=== PATIENT | female | born 1970 | race Caucasian/White ===

== ENCOUNTER 2020-05-02 19:11 | Inpatient (IN) | payer MEDICAID ==
[~2020-05-02] VITALS: Ht 160 cm; Wt 74.5 kg
[2020-05-03 05:03] VITALS: BP 118/83
[2020-05-03] MEDS ORDERED: MAGNESIUM HYDROXIDE SUSPENSION 30 ML UDCUP PO PRN (07:30)
[2020-05-03] MEDS ORDERED: BENZOCAINE/MENTHOL LOZENGE PO PRN (07:30)
[2020-05-03] MEDS ORDERED: MAG HYDROX/AL HYDROX/SIMETH ES 30 ML SUSPENSION UDCUP PO PRN (07:30)
[2020-05-03] MEDS ORDERED: LOPERAMIDE HCL 2 MG CAPSULE PO PRN (07:30)
[2020-05-03] MEDS ORDERED: OMEPRAZOLE 20 MG CAPSULE PO PRN (07:30)
[2020-05-03] MEDS ORDERED: BACITRACIN 28 GM OINTMENT TP PRN (07:30)
[2020-05-03] MEDS ORDERED: CloNIDine HCL 0.1 MG TABLET PO PRN (07:30)
[2020-05-03] MEDS ORDERED: PETROLATUM,WHITE 28 GM JELLY TP PRN (07:30)
[2020-05-03] MEDS ORDERED: ONDANSETRON HCL 4 MG TABLET PO PRN (07:30)
[2020-05-03] MEDS ORDERED: INFLUENZA VIRUS VACCINE QVS 2020-21 (6MO+)/PF 60 MCG/0.5 ML SYRINGE IM ONE (07:30)
[2020-05-03] MEDS ORDERED: ALBUTEROL SULFATE HFA 90 MCG/PUFF 8 GM INHALER IH PRN (07:30)
[2020-05-03 08:08] VITALS: BP 107/70
[2020-05-03] MEDS ORDERED: OLAN5TAB5 PO (08:24)
[2020-05-03] MEDS ORDERED: TRAZ-257 PO (08:31)
[2020-05-03] MEDS ORDERED: ESCI-8 PO (08:31)
[2020-05-03] MEDS ORDERED: MULT-1203 PO (08:31)
[2020-05-03] MEDS ORDERED: GABA-1181 PO (08:31)
[2020-05-03] MEDS ORDERED: LEVO25TA9 PO (08:31)
[2020-05-03] MEDS ORDERED: HYDR50CA9 PO (08:33)
[2020-05-03] MEDS: LORazepam 2 MG TABLET PO PRN ×2 (08:47→17:07)
[2020-05-03 16:07] VITALS: BP 113/80
[2020-05-03 17:05] VITALS: BP 127/90
[2020-05-03] MEDS: IBUPROFEN 600 MG TABLET PO PRN (17:07)
[2020-05-03] MEDS: GABAPENTIN 300 MG CAPSULE PO SCH (17:10)
[2020-05-03] MEDS: HydrOXYzine PAMOATE 25 MG CAPSULE PO SCH (17:15)
[2020-05-03] MEDS: OLANZapine 5 MG TABLET PO SCH (21:01)
[2020-05-04 04:49] VITALS: BP 115/63
[2020-05-04 08:21] VITALS: BP 103/66
[2020-05-04] MEDS: GABAPENTIN 300 MG CAPSULE PO SCH ×3 (08:51→16:23)
[2020-05-04] MEDS: HydrOXYzine PAMOATE 25 MG CAPSULE PO SCH ×3 (08:51→16:23)
[2020-05-04] MEDS: ESCITALOPRAM OXALATE 10 MG TABLET PO SCH (08:51)
[2020-05-04] MEDS: LORazepam 2 MG TABLET PO PRN ×2 (12:31→18:12)
[2020-05-04 18:10] VITALS: BP 123/84
[2020-05-04] MEDS: OLANZapine 5 MG TABLET PO SCH (20:26)
[2020-05-04] MEDS: ZOLPIDEM TARTRATE 10 MG TABLET PO PRN (21:06)
[2020-05-05 02:31] VITALS: BP 118/76
[2020-05-05] MEDS: LORazepam 2 MG TABLET PO PRN ×3 (03:36→18:55)
[2020-05-05 08:21] VITALS: BP 100/57
[2020-05-05] MEDS: ESCITALOPRAM OXALATE 10 MG TABLET PO SCH (09:30)
[2020-05-05] MEDS: HydrOXYzine PAMOATE 25 MG CAPSULE PO SCH ×3 (09:30→15:55)
[2020-05-05] MEDS: GABAPENTIN 300 MG CAPSULE PO SCH ×3 (09:30→15:54)
[2020-05-05 16:16] VITALS: BP 118/65
[2020-05-05] MEDS: OLANZapine 5 MG TABLET PO SCH (20:06)
[2020-05-05] MEDS: ZOLPIDEM TARTRATE 10 MG TABLET PO PRN (20:06)
[2020-05-06 00:11] VITALS: BP 110/71
[2020-05-06 08:22] VITALS: BP 116/69
[2020-05-06] MEDS: LORazepam 2 MG TABLET PO PRN ×3 (08:31→17:16)
[2020-05-06] MEDS: GABAPENTIN 300 MG CAPSULE PO SCH ×3 (08:31→15:43)
[2020-05-06] MEDS: ESCITALOPRAM OXALATE 10 MG TABLET PO SCH (08:31)
[2020-05-06] MEDS: HydrOXYzine PAMOATE 25 MG CAPSULE PO SCH ×3 (08:31→15:43)
[2020-05-06] MEDS: IBUPROFEN 600 MG TABLET PO PRN (12:48)
[2020-05-06 16:03] VITALS: BP 116/79
[2020-05-06] MEDS: OLANZapine 5 MG TABLET PO SCH (20:05)
[2020-05-06] MEDS: ZOLPIDEM TARTRATE 10 MG TABLET PO PRN (21:14)
[2020-05-07 00:19] VITALS: BP 100/60
[2020-05-07] MEDS: HydrOXYzine PAMOATE 25 MG CAPSULE PO SCH ×3 (08:16→16:29)
[2020-05-07] MEDS: ESCITALOPRAM OXALATE 10 MG TABLET PO SCH (08:16)
[2020-05-07] MEDS: GABAPENTIN 300 MG CAPSULE PO SCH ×3 (08:17→16:29)
[2020-05-07 08:18] VITALS: BP 105/64
[2020-05-07] MEDS: LORazepam 2 MG TABLET PO PRN ×4 (08:45→23:14)
[2020-05-07 16:26] VITALS: BP 105/76
[2020-05-07] MEDS: OLANZapine 5 MG TABLET PO SCH (19:43)
[2020-05-07] MEDS: ZOLPIDEM TARTRATE 10 MG TABLET PO PRN (19:44)
[2020-05-08 00:30] VITALS: BP 109/68
[2020-05-08 08:04] VITALS: BP 116/74
[2020-05-08] MEDS: ESCITALOPRAM OXALATE 10 MG TABLET PO SCH (08:11)
[2020-05-08] MEDS: HydrOXYzine PAMOATE 25 MG CAPSULE PO SCH ×3 (08:11→16:05)
[2020-05-08] MEDS: GABAPENTIN 300 MG CAPSULE PO SCH ×3 (08:11→16:05)
[2020-05-08] MEDS: LORazepam 2 MG TABLET PO PRN ×2 (10:49→17:21)
[2020-05-08 16:01] VITALS: BP 110/77
[2020-05-08 16:10] VITALS: BP 100/77
[2020-05-08] MEDS: OLANZapine 5 MG TABLET PO SCH (20:18)
[2020-05-08] MEDS: ZOLPIDEM TARTRATE 10 MG TABLET PO PRN (21:42)
[2020-05-09 04:09] VITALS: BP 113/70
[2020-05-09 05:58] VITALS: BP 103/49
[2020-05-09 08:02] VITALS: BP 114/83
[2020-05-09 08:50] LABS: HEMOGLOBIN A1C 4.8 % (3.8-5.6)
[2020-05-09 08:54] LABS: BASOPHILS % (AUTO) 0.6 % (0.0-2.0); HEMATOCRIT 35.2 % (36-46); HEMOGLOBIN 11.9 g/dL (12.0-16.0); LYMPHOCYTES # (AUTO) 2.9 K/uL (1.0-4.8); LYMPHOCYTES % (AUTO) 50.2 % (22.0-44.0); MEAN CORPUSCULAR HEMOGLOBIN 31.2 pg (26.0-34.0); MEAN CORPUSCULAR HGB CONC 33.9 G/dL (31.0-37.0); MEAN CORPUSCULAR VOLUME 92 fL (80-100); MONOCYTES # (AUTO) 0.3 K/uL (0.1-1.0); MONOCYTES % (AUTO) 5.9 % (2.0-9.0); NEUTROPHILS # (AUTO) 2.3 K/uL (1.8-7.7); NEUTROPHILS % (AUTO) 40.3 % (40.0-70.0); PLATELET COUNT (AUTO) 341 K/uL (150-450); RED BLOOD CELL COUNT(AUTO) 3.83 MIL/uL (4.00-5.20); RED CELL DISTRIBUTION WIDTH 13.3 % (11.5-14.5)
[2020-05-09] MEDS: ESCITALOPRAM OXALATE 10 MG TABLET PO SCH (09:01)
[2020-05-09] MEDS: HydrOXYzine PAMOATE 25 MG CAPSULE PO SCH ×3 (09:02→17:34)
[2020-05-09] MEDS: GABAPENTIN 300 MG CAPSULE PO SCH ×3 (09:02→17:34)
[2020-05-09 09:08] LABS: ALANINE AMINOTRANSFERASE 61 U/L (12-78); ALBUMIN 3.5 g/dL (3.4-5.0); ALKALINE PHOSPHATASE 44 U/L (46-116); ANION GAP 6 mmol/L (8-16); ASPARTATE AMINOTRANSFERASE 29 U/L (15-37); BILIRUBIN,TOTAL 0.2 mg/dL (0.1-1.0); CALCIUM, TOTAL 9.1 mg/dL (8.8-10.5); CARBON DIOXIDE 29 mmol/L (22-29); CHLORIDE 103 mmol/L (98-107); CHOL/HDL RATIO 10.6 (3.9-5.7); CHOLESTEROL 329 mg/dL (131-200); CREATININE 0.92 mg/dL (0.60-1.30); GLOMERULAR FILTR. RATE CALC > 60 mL/min (>60); GLUCOSE,RANDOM 83 mg/dL (70-110); HDL CHOLESTEROL 31 mg/dL (40-60); PHOSPHORUS 4.3 mg/dL (2.5-4.9); POTASSIUM 4.3 mmol/L (3.5-5.1); SODIUM SERUM 138 mmol/L (136-145); TOTAL PROTEIN, SERUM 6.5 g/dL (6.4-8.2); TRIGLYCERIDES 645 mg/dL (15-150); UREA NITROGEN, BLOOD 13 mg/dL (7-18)
[2020-05-09] MEDS: LORazepam 2 MG TABLET PO PRN ×2 (11:57→18:42)
[2020-05-09] MEDS: IBUPROFEN 600 MG TABLET PO PRN (18:42)
[2020-05-09] MEDS: OLANZapine 5 MG TABLET PO SCH (20:48)
[2020-05-09] MEDS: ZOLPIDEM TARTRATE 10 MG TABLET PO PRN (20:48)
[2020-05-10] MEDS: LORazepam 2 MG TABLET PO PRN ×3 (00:04→18:11)
[2020-05-10 00:06] VITALS: BP 120/81
[2020-05-10 08:02] VITALS: BP 112/65
[2020-05-10] MEDS: HydrOXYzine PAMOATE 25 MG CAPSULE PO SCH ×3 (08:37→16:30)
[2020-05-10] MEDS: ESTRADIOL 1 MG TABLET PO SCH (08:37)
[2020-05-10] MEDS: ESCITALOPRAM OXALATE 10 MG TABLET PO SCH (08:37)
[2020-05-10] MEDS: GABAPENTIN 300 MG CAPSULE PO SCH ×3 (08:37→16:30)
[2020-05-10 16:09] VITALS: BP 120/66
[2020-05-10] MEDS: ZOLPIDEM TARTRATE 10 MG TABLET PO PRN (21:11)
[2020-05-10] MEDS: OLANZapine 5 MG TABLET PO SCH (21:11)
[2020-05-11 00:24] VITALS: BP 102/67
[2020-05-11] MEDS: LORazepam 2 MG TABLET PO PRN ×3 (03:53→19:09)
[2020-05-11 08:21] VITALS: BP 108/53
[2020-05-11] MEDS: ESTRADIOL 1 MG TABLET PO SCH (08:23)
[2020-05-11] MEDS: GABAPENTIN 300 MG CAPSULE PO SCH ×3 (08:23→16:32)
[2020-05-11] MEDS: HydrOXYzine PAMOATE 25 MG CAPSULE PO SCH ×3 (08:23→16:32)
[2020-05-11] MEDS: ESCITALOPRAM OXALATE 10 MG TABLET PO SCH (08:23)
[2020-05-11 16:01] VITALS: BP 101/66
[2020-05-11] MEDS: ERYTHROMYCIN 0.5% 3.5 GM TUBE OPHTHALMIC OINTMENT OU SCH (16:33)
[2020-05-11] MEDS ORDERED: ERYTHROMYCIN 0.5% 3.5 GM TUBE OPHTHALMIC OINTMENT TP SCH (17:00)
[2020-05-11] MEDS: OLANZapine 5 MG TABLET PO SCH (20:10)
[2020-05-11] MEDS: ZOLPIDEM TARTRATE 10 MG TABLET PO PRN (21:56)
[2020-05-12] MEDS: ZOLPIDEM TARTRATE 10 MG TABLET PO PRN ×2 (00:38→21:00)
[2020-05-12 00:39] VITALS: BP 135/77
[2020-05-12] MEDS: LEVOTHYROXINE SODIUM 25 MCG TABLET PO SCH (06:44)
[2020-05-12] MEDS: GABAPENTIN 300 MG CAPSULE PO SCH ×3 (08:11→16:54)
[2020-05-12] MEDS: ESTRADIOL 1 MG TABLET PO SCH (08:11)
[2020-05-12] MEDS: HydrOXYzine PAMOATE 25 MG CAPSULE PO SCH ×3 (08:11→16:54)
[2020-05-12] MEDS: ESCITALOPRAM OXALATE 10 MG TABLET PO SCH (08:12)
[2020-05-12] MEDS: ERYTHROMYCIN 0.5% 3.5 GM TUBE OPHTHALMIC OINTMENT OU SCH ×3 (08:13→16:55)
[2020-05-12 08:53] VITALS: BP 104/71
[2020-05-12] MEDS: DOCUSATE SODIUM 100 MG CAPSULE PO PRN (09:13)
[2020-05-12 17:21] VITALS: BP 107/87
[2020-05-12] MEDS: OLANZapine 5 MG TABLET PO SCH (20:10)
[2020-05-13 01:15] VITALS: BP 96/51
[2020-05-13] MEDS: LEVOTHYROXINE SODIUM 25 MCG TABLET PO SCH (06:50)
[2020-05-13 08:07] VITALS: BP 119/72
[2020-05-13] MEDS: ESCITALOPRAM OXALATE 10 MG TABLET PO SCH (08:13)
[2020-05-13] MEDS: HydrOXYzine PAMOATE 25 MG CAPSULE PO SCH ×3 (08:13→16:24)
[2020-05-13] MEDS: GABAPENTIN 300 MG CAPSULE PO SCH ×3 (08:13→16:24)
[2020-05-13] MEDS: ESTRADIOL 1 MG TABLET PO SCH (08:13)
[2020-05-13] MEDS: ERYTHROMYCIN 0.5% 3.5 GM TUBE OPHTHALMIC OINTMENT OU SCH ×3 (08:15→16:25)
[2020-05-13] MEDS: HALOPERIDOL 5 MG TABLET PO PRN (14:23)
[2020-05-13 16:04] VITALS: BP 133/76
[2020-05-13] MEDS: OLANZapine 5 MG TABLET PO SCH (20:14)
[2020-05-13] MEDS: ZOLPIDEM TARTRATE 10 MG TABLET PO PRN (21:36)
[2020-05-14 05:28] VITALS: BP 128/78
[2020-05-14] MEDS: LEVOTHYROXINE SODIUM 25 MCG TABLET PO SCH (06:34)
[2020-05-14 07:38] VITALS: BP 104/72
[2020-05-14] MEDS: ESCITALOPRAM OXALATE 10 MG TABLET PO SCH (08:07)
[2020-05-14] MEDS: HydrOXYzine PAMOATE 25 MG CAPSULE PO SCH ×3 (08:07→16:05)
[2020-05-14] MEDS: ESTRADIOL 1 MG TABLET PO SCH (08:07)
[2020-05-14] MEDS: GABAPENTIN 300 MG CAPSULE PO SCH ×3 (08:07→16:05)
[2020-05-14] MEDS: OMEGA-3/DHA/EPA/FISH OIL 1,000 MG CAPSULE PO SCH (09:38)
[2020-05-14] MEDS: ERYTHROMYCIN 0.5% 3.5 GM TUBE OPHTHALMIC OINTMENT OU SCH ×3 (09:43→16:06)
[2020-05-14] MEDS: HALOPERIDOL 5 MG TABLET PO PRN (13:39)
[2020-05-14] MEDS: IBUPROFEN 600 MG TABLET PO PRN (16:03)
[2020-05-14 16:06] VITALS: BP 115/76
[2020-05-14] MEDS: OLANZapine 5 MG TABLET PO SCH (20:15)
[2020-05-15 00:10] VITALS: BP 106/62
[2020-05-15] MEDS: HALOPERIDOL 5 MG TABLET PO PRN (01:58)
[2020-05-15] MEDS: LEVOTHYROXINE SODIUM 25 MCG TABLET PO SCH (06:11)
[2020-05-15 08:08] VITALS: BP 143/88
[2020-05-15] MEDS: ERYTHROMYCIN 0.5% 3.5 GM TUBE OPHTHALMIC OINTMENT OU SCH ×3 (09:10→15:54)
[2020-05-15] MEDS: OMEGA-3/DHA/EPA/FISH OIL 1,000 MG CAPSULE PO SCH (09:10)
[2020-05-15] MEDS: ESTRADIOL 1 MG TABLET PO SCH (09:10)
[2020-05-15] MEDS: GABAPENTIN 300 MG CAPSULE PO SCH ×3 (09:11→15:54)
[2020-05-15] MEDS: HydrOXYzine PAMOATE 25 MG CAPSULE PO SCH ×3 (09:11→15:54)
[2020-05-15] MEDS: ESCITALOPRAM OXALATE 10 MG TABLET PO SCH (09:11)
[2020-05-15] MEDS: IBUPROFEN 600 MG TABLET PO PRN (10:46)
[2020-05-15] MEDS: ACETAMINOPHEN 325 MG TABLET PO PRN (15:54)
[2020-05-15 16:08] VITALS: BP 120/84
[2020-05-15] MEDS: ZOLPIDEM TARTRATE 10 MG TABLET PO PRN (20:50)
[2020-05-15] MEDS: OLANZapine 5 MG TABLET PO SCH (21:00)
[2020-05-16 05:48] VITALS: BP 112/68
[2020-05-16 05:58] VITALS: BP 103/62
[2020-05-16] MEDS: LEVOTHYROXINE SODIUM 25 MCG TABLET PO SCH (06:45)
[2020-05-16 08:01] VITALS: BP 109/67
[2020-05-16] MEDS: HydrOXYzine PAMOATE 25 MG CAPSULE PO SCH ×3 (08:10→16:13)
[2020-05-16] MEDS: GABAPENTIN 300 MG CAPSULE PO SCH ×3 (08:10→16:13)
[2020-05-16] MEDS: ESTRADIOL 1 MG TABLET PO SCH (08:10)
[2020-05-16] MEDS: ESCITALOPRAM OXALATE 10 MG TABLET PO SCH (08:10)
[2020-05-16] MEDS: OMEGA-3/DHA/EPA/FISH OIL 1,000 MG CAPSULE PO SCH (08:10)
[2020-05-16] MEDS: ERYTHROMYCIN 0.5% 3.5 GM TUBE OPHTHALMIC OINTMENT OU SCH ×3 (08:12→16:13)
[2020-05-16] MEDS: IBUPROFEN 600 MG TABLET PO PRN ×2 (11:46→21:03)
[2020-05-16 16:08] VITALS: BP 137/90
[2020-05-16] MEDS: OLANZapine 5 MG TABLET PO SCH (20:02)
[2020-05-16] MEDS ORDERED: MELATONIN 3 MG TABLET PO PRN (20:30)
[2020-05-16] MEDS: ZOLPIDEM TARTRATE 10 MG TABLET PO PRN (21:04)
[2020-05-17 05:38] VITALS: BP 129/81
[2020-05-17] MEDS: LEVOTHYROXINE SODIUM 25 MCG TABLET PO SCH (06:36)
[2020-05-17] MEDS: GABAPENTIN 400 MG CAPSULE PO SCH ×3 (08:17→16:02)
[2020-05-17] MEDS: ESCITALOPRAM OXALATE 10 MG TABLET PO SCH (08:17)
[2020-05-17] MEDS: ESTRADIOL 1 MG TABLET PO SCH (08:17)
[2020-05-17] MEDS: OMEGA-3/DHA/EPA/FISH OIL 1,000 MG CAPSULE PO SCH (08:17)
[2020-05-17] MEDS: HydrOXYzine PAMOATE 25 MG CAPSULE PO SCH ×3 (08:18→16:02)
[2020-05-17] MEDS: ERYTHROMYCIN 0.5% 3.5 GM TUBE OPHTHALMIC OINTMENT OU SCH ×3 (08:25→16:02)
[2020-05-17] MEDS: IBUPROFEN 600 MG TABLET PO PRN (09:02)
[2020-05-17 09:34] VITALS: BP 128/84
[2020-05-17 16:06] VITALS: BP 104/74
[2020-05-17] MEDS: OLANZapine 5 MG TABLET PO SCH (20:03)
[2020-05-18 00:54] VITALS: BP 100/70
[2020-05-18] MEDS: ZOLPIDEM TARTRATE 10 MG TABLET PO PRN (01:17)
[2020-05-18] MEDS: LEVOTHYROXINE SODIUM 25 MCG TABLET PO SCH (06:31)
[2020-05-18 08:02] VITALS: BP 112/73
[2020-05-18] MEDS: GABAPENTIN 400 MG CAPSULE PO SCH ×3 (08:36→16:22)
[2020-05-18] MEDS: OMEGA-3/DHA/EPA/FISH OIL 1,000 MG CAPSULE PO SCH (08:36)
[2020-05-18] MEDS: ESTRADIOL 1 MG TABLET PO SCH (08:36)
[2020-05-18] MEDS: HydrOXYzine PAMOATE 25 MG CAPSULE PO SCH ×3 (08:36→16:22)
[2020-05-18] MEDS: ESCITALOPRAM OXALATE 10 MG TABLET PO SCH (08:36)
[2020-05-18] MEDS: IBUPROFEN 600 MG TABLET PO PRN (15:15)
[2020-05-18 16:17] VITALS: BP 114/84
[2020-05-18] MEDS: OLANZapine 5 MG TABLET PO SCH (20:09)
[2020-05-18] MEDS: MELATONIN 5 MG TABLET PO PRN (20:57)
[2020-05-18] MEDS: DOCUSATE SODIUM 100 MG CAPSULE PO PRN (20:58)
[2020-05-19] VITALS: BP 104/68
[2020-05-19 03:22] VITALS: BP 114/74
[2020-05-19] MEDS: IBUPROFEN 600 MG TABLET PO PRN ×2 (03:28→13:32)
[2020-05-19] MEDS: LEVOTHYROXINE SODIUM 25 MCG TABLET PO SCH (06:39)
[2020-05-19 08:02] VITALS: BP 104/54
[2020-05-19] MEDS: OMEGA-3/DHA/EPA/FISH OIL 1,000 MG CAPSULE PO SCH (08:10)
[2020-05-19] MEDS: ESTRADIOL 1 MG TABLET PO SCH (08:10)
[2020-05-19] MEDS: GABAPENTIN 400 MG CAPSULE PO SCH ×3 (08:10→16:08)
[2020-05-19] MEDS: HydrOXYzine PAMOATE 25 MG CAPSULE PO SCH ×3 (08:10→16:08)
[2020-05-19] MEDS: MULTIVITAMINS WITH MINERALS, THERAPEUTIC TABLET PO SCH (08:10)
[2020-05-19] MEDS: ESCITALOPRAM OXALATE 10 MG TABLET PO SCH (08:15)
[2020-05-19 16:05] VITALS: BP 103/54
[2020-05-19] MEDS: OLANZapine 5 MG TABLET PO SCH (20:05)
[2020-05-19] MEDS: ZOLPIDEM TARTRATE 10 MG TABLET PO PRN (21:10)
[2020-05-19] MEDS: ACETAMINOPHEN 325 MG TABLET PO PRN (21:10)
[2020-05-20 01:12] VITALS: BP 112/61
[2020-05-20] MEDS: LEVOTHYROXINE SODIUM 25 MCG TABLET PO SCH (06:24)
[2020-05-20 07:41] VITALS: BP 111/85
[2020-05-20] MEDS: OMEGA-3/DHA/EPA/FISH OIL 1,000 MG CAPSULE PO SCH (08:06)
[2020-05-20] MEDS: GABAPENTIN 400 MG CAPSULE PO SCH ×3 (08:06→17:02)
[2020-05-20] MEDS: ESCITALOPRAM OXALATE 10 MG TABLET PO SCH ×2 (08:06→08:31)
[2020-05-20] MEDS: HydrOXYzine PAMOATE 25 MG CAPSULE PO SCH ×3 (08:06→17:02)
[2020-05-20] MEDS: MULTIVITAMINS WITH MINERALS, THERAPEUTIC TABLET PO SCH (08:06)
[2020-05-20] MEDS: ESTRADIOL 1 MG TABLET PO SCH (08:06)
[2020-05-20 08:10] VITALS: BP 111/85
[2020-05-20] MEDS: ACETAMINOPHEN 325 MG TABLET PO PRN (13:44)
[2020-05-20 16:02] VITALS: BP 118/65
[2020-05-20 20:00] VITALS: BP 114/64
[2020-05-20] MEDS: OLANZapine 5 MG TABLET PO SCH (20:03)
[2020-05-20] MEDS: IBUPROFEN 600 MG TABLET PO PRN (20:04)
[2020-05-20] MEDS: ZOLPIDEM TARTRATE 10 MG TABLET PO PRN (20:57)
[2020-05-20] MEDS: DOCUSATE SODIUM 100 MG CAPSULE PO PRN (20:57)
[2020-05-21 00:05] VITALS: BP 108/53
[2020-05-21] MEDS: LEVOTHYROXINE SODIUM 25 MCG TABLET PO SCH (06:19)
[2020-05-21 08:14] VITALS: BP 110/80
[2020-05-21] MEDS: OMEGA-3/DHA/EPA/FISH OIL 1,000 MG CAPSULE PO SCH (08:15)
[2020-05-21] MEDS: HydrOXYzine PAMOATE 25 MG CAPSULE PO SCH ×3 (08:15→16:18)
[2020-05-21] MEDS: ESTRADIOL 1 MG TABLET PO SCH (08:15)
[2020-05-21] MEDS: MULTIVITAMINS WITH MINERALS, THERAPEUTIC TABLET PO SCH (08:15)
[2020-05-21] MEDS: GABAPENTIN 400 MG CAPSULE PO SCH ×3 (08:15→16:18)
[2020-05-21] MEDS: ESCITALOPRAM OXALATE 10 MG TABLET PO SCH (08:20)
[2020-05-21 16:01] VITALS: BP 114/79
[2020-05-21] MEDS: OLANZapine 5 MG TABLET PO SCH (20:06)
[2020-05-21] MEDS: DOCUSATE SODIUM 100 MG CAPSULE PO PRN (21:10)
[2020-05-21] MEDS: ZOLPIDEM TARTRATE 10 MG TABLET PO PRN (21:10)
[2020-05-22 00:31] VITALS: BP 125/86
[2020-05-22] MEDS: MELATONIN 5 MG TABLET PO PRN (01:13)
[2020-05-22] MEDS: LEVOTHYROXINE SODIUM 25 MCG TABLET PO SCH (06:29)
[2020-05-22 08:06] VITALS: BP 138/56
[2020-05-22] MEDS: ESTRADIOL 1 MG TABLET PO SCH (08:57)
[2020-05-22] MEDS: OMEGA-3/DHA/EPA/FISH OIL 1,000 MG CAPSULE PO SCH (08:57)
[2020-05-22] MEDS: GABAPENTIN 400 MG CAPSULE PO SCH ×3 (08:58→16:07)
[2020-05-22] MEDS: MULTIVITAMINS WITH MINERALS, THERAPEUTIC TABLET PO SCH (08:58)
[2020-05-22] MEDS: HydrOXYzine PAMOATE 25 MG CAPSULE PO SCH ×3 (08:58→16:07)
[2020-05-22] MEDS: ESCITALOPRAM OXALATE 10 MG TABLET PO SCH (08:59)
[2020-05-22 16:01] VITALS: BP 117/75
[2020-05-22] MEDS: IBUPROFEN 600 MG TABLET PO PRN (16:11)
[2020-05-22] MEDS: OLANZapine 5 MG TABLET PO SCH (20:25)
[2020-05-22] MEDS: ZOLPIDEM TARTRATE 10 MG TABLET PO PRN (20:29)
[2020-05-23] VITALS: BP 112/75
[2020-05-23] MEDS: MELATONIN 5 MG TABLET PO PRN (02:27)
[2020-05-23] MEDS: LEVOTHYROXINE SODIUM 25 MCG TABLET PO SCH (07:08)
[2020-05-23 08:02] VITALS: BP 132/71
[2020-05-23] MEDS: HydrOXYzine PAMOATE 25 MG CAPSULE PO SCH ×3 (08:29→16:31)
[2020-05-23] MEDS: OMEGA-3/DHA/EPA/FISH OIL 1,000 MG CAPSULE PO SCH (08:29)
[2020-05-23] MEDS: MULTIVITAMINS WITH MINERALS, THERAPEUTIC TABLET PO SCH (08:29)
[2020-05-23] MEDS: GABAPENTIN 400 MG CAPSULE PO SCH ×3 (08:29→16:31)
[2020-05-23] MEDS: ESTRADIOL 1 MG TABLET PO SCH (08:29)
[2020-05-23] MEDS: ESCITALOPRAM OXALATE 10 MG TABLET PO SCH (08:38)
[2020-05-23 16:08] VITALS: BP 130/70
[2020-05-23] MEDS: OLANZapine 5 MG TABLET PO SCH (20:01)
[2020-05-23] MEDS: ZOLPIDEM TARTRATE 10 MG TABLET PO PRN (20:54)
[2020-05-24 05:06] VITALS: BP 108/69
[2020-05-24] MEDS: LEVOTHYROXINE SODIUM 25 MCG TABLET PO SCH (06:48)
[2020-05-24] MEDS: ESTRADIOL 1 MG TABLET PO SCH (08:00)
[2020-05-24] MEDS: GABAPENTIN 400 MG CAPSULE PO SCH ×3 (08:01→16:17)
[2020-05-24] MEDS: MULTIVITAMINS WITH MINERALS, THERAPEUTIC TABLET PO SCH (08:01)
[2020-05-24] MEDS: OMEGA-3/DHA/EPA/FISH OIL 1,000 MG CAPSULE PO SCH (08:01)
[2020-05-24] MEDS: HydrOXYzine PAMOATE 25 MG CAPSULE PO SCH ×3 (08:01→16:17)
[2020-05-24] MEDS: ESCITALOPRAM OXALATE 10 MG TABLET PO SCH (08:06)
[2020-05-24 08:09] VITALS: BP 109/89
[2020-05-24 16:05] VITALS: BP 116/68
[2020-05-24] MEDS: OLANZapine 5 MG TABLET PO SCH (20:09)
[2020-05-24] MEDS: IBUPROFEN 600 MG TABLET PO PRN (20:09)
[2020-05-24] MEDS: ZOLPIDEM TARTRATE 10 MG TABLET PO PRN (21:08)
[2020-05-25] VITALS: BP 129/62
[2020-05-25] MEDS: MELATONIN 5 MG TABLET PO PRN ×2 (02:09→23:45)
[2020-05-25] MEDS: LEVOTHYROXINE SODIUM 25 MCG TABLET PO SCH (06:50)
[2020-05-25 08:06] VITALS: BP 114/69
[2020-05-25] MEDS: GABAPENTIN 400 MG CAPSULE PO SCH ×3 (08:56→16:44)
[2020-05-25] MEDS: OMEGA-3/DHA/EPA/FISH OIL 1,000 MG CAPSULE PO SCH (08:57)
[2020-05-25] MEDS: MULTIVITAMINS WITH MINERALS, THERAPEUTIC TABLET PO SCH (08:57)
[2020-05-25] MEDS: ESTRADIOL 1 MG TABLET PO SCH (08:57)
[2020-05-25] MEDS: ESCITALOPRAM OXALATE 10 MG TABLET PO SCH (08:57)
[2020-05-25] MEDS: HydrOXYzine PAMOATE 25 MG CAPSULE PO SCH ×3 (08:57→16:44)
[2020-05-25 16:01] VITALS: BP 103/72
[2020-05-25] MEDS: OLANZapine 5 MG TABLET PO SCH (20:44)
[2020-05-25] MEDS: ZOLPIDEM TARTRATE 10 MG TABLET PO PRN (20:44)
[2020-05-26 00:18] VITALS: BP 108/63
[2020-05-26] MEDS: LEVOTHYROXINE SODIUM 25 MCG TABLET PO SCH (07:04)
[2020-05-26 08:05] VITALS: BP 100/63
[2020-05-26] MEDS: HydrOXYzine PAMOATE 25 MG CAPSULE PO SCH ×3 (08:06→16:26)
[2020-05-26] MEDS: OMEGA-3/DHA/EPA/FISH OIL 1,000 MG CAPSULE PO SCH (08:06)
[2020-05-26] MEDS: GABAPENTIN 400 MG CAPSULE PO SCH ×3 (08:06→16:26)
[2020-05-26] MEDS: ESTRADIOL 1 MG TABLET PO SCH (08:06)
[2020-05-26] MEDS: MULTIVITAMINS WITH MINERALS, THERAPEUTIC TABLET PO SCH (08:06)
[2020-05-26] MEDS: ESCITALOPRAM OXALATE 10 MG TABLET PO SCH (08:11)
[2020-05-26 16:03] VITALS: BP 129/60
[2020-05-26] MEDS: OLANZapine 5 MG TABLET PO SCH (20:14)
[2020-05-26] MEDS: ZOLPIDEM TARTRATE 10 MG TABLET PO PRN (21:03)
[2020-05-27 05:46] VITALS: BP 107/85
[2020-05-27] MEDS: LEVOTHYROXINE SODIUM 25 MCG TABLET PO SCH (06:30)
[2020-05-27] MEDS: MULTIVITAMINS WITH MINERALS, THERAPEUTIC TABLET PO SCH (08:31)
[2020-05-27] MEDS: ESTRADIOL 1 MG TABLET PO SCH (08:31)
[2020-05-27] MEDS: HydrOXYzine PAMOATE 25 MG CAPSULE PO SCH ×3 (08:31→16:07)
[2020-05-27] MEDS: OMEGA-3/DHA/EPA/FISH OIL 1,000 MG CAPSULE PO SCH (08:31)
[2020-05-27] MEDS: GABAPENTIN 400 MG CAPSULE PO SCH ×3 (08:31→16:07)
[2020-05-27 08:38] VITALS: BP 111/83
[2020-05-27] MEDS: ESCITALOPRAM OXALATE 10 MG TABLET PO SCH (08:39)
[2020-05-27 16:37] VITALS: BP 117/74
[2020-05-27] MEDS: OLANZapine 5 MG TABLET PO SCH (20:07)
[2020-05-27] MEDS: ZOLPIDEM TARTRATE 10 MG TABLET PO PRN (21:04)
[2020-05-28 01:27] VITALS: BP 109/51
[2020-05-28] MEDS: LEVOTHYROXINE SODIUM 25 MCG TABLET PO SCH (06:06)
[2020-05-28 08:17] VITALS: BP 128/90
[2020-05-28] MEDS: MULTIVITAMINS WITH MINERALS, THERAPEUTIC TABLET PO SCH (08:26)
[2020-05-28] MEDS: GABAPENTIN 400 MG CAPSULE PO SCH ×3 (08:26→16:47)
[2020-05-28] MEDS: HydrOXYzine PAMOATE 25 MG CAPSULE PO SCH ×3 (08:26→16:47)
[2020-05-28] MEDS: ESTRADIOL 1 MG TABLET PO SCH (08:26)
[2020-05-28] MEDS: OMEGA-3/DHA/EPA/FISH OIL 1,000 MG CAPSULE PO SCH (08:27)
[2020-05-28] MEDS: ESCITALOPRAM OXALATE 10 MG TABLET PO SCH (08:28)
[2020-05-28 16:05] VITALS: BP 114/73
[2020-05-28] MEDS: OLANZapine 5 MG TABLET PO SCH (20:02)
[2020-05-28] MEDS: IBUPROFEN 600 MG TABLET PO PRN (20:02)
[2020-05-28] MEDS: ZOLPIDEM TARTRATE 10 MG TABLET PO PRN (20:32)
[2020-05-29] MEDS: MELATONIN 5 MG TABLET PO PRN (02:42)
[2020-05-29 02:48] VITALS: BP 135/70
[2020-05-29] MEDS: LEVOTHYROXINE SODIUM 25 MCG TABLET PO SCH (06:07)
[2020-05-29] MEDS: HydrOXYzine PAMOATE 25 MG CAPSULE PO SCH ×3 (08:24→16:19)
[2020-05-29] MEDS: GABAPENTIN 400 MG CAPSULE PO SCH ×3 (08:24→16:19)
[2020-05-29] MEDS: MULTIVITAMINS WITH MINERALS, THERAPEUTIC TABLET PO SCH (08:24)
[2020-05-29] MEDS: OMEGA-3/DHA/EPA/FISH OIL 1,000 MG CAPSULE PO SCH (08:24)
[2020-05-29] MEDS: ESTRADIOL 1 MG TABLET PO SCH (08:24)
[2020-05-29] MEDS: ESCITALOPRAM OXALATE 10 MG TABLET PO SCH (08:25)
[2020-05-29 12:44] VITALS: BP 125/79
[2020-05-29 16:01] VITALS: BP 120/79
[2020-05-29] MEDS: IBUPROFEN 600 MG TABLET PO PRN (16:26)
[2020-05-29] MEDS: OLANZapine 5 MG TABLET PO SCH (20:03)
[2020-05-29] MEDS: ZOLPIDEM TARTRATE 10 MG TABLET PO PRN (21:02)
[2020-05-30 00:07] VITALS: BP 122/72
[2020-05-30] MEDS: LEVOTHYROXINE SODIUM 25 MCG TABLET PO SCH (06:08)
[2020-05-30 08:06] VITALS: BP 113/71
[2020-05-30] MEDS: ESTRADIOL 1 MG TABLET PO SCH (08:07)
[2020-05-30] MEDS: OMEGA-3/DHA/EPA/FISH OIL 1,000 MG CAPSULE PO SCH (08:08)
[2020-05-30] MEDS: MULTIVITAMINS WITH MINERALS, THERAPEUTIC TABLET PO SCH (08:08)
[2020-05-30] MEDS: GABAPENTIN 400 MG CAPSULE PO SCH ×3 (08:08→16:10)
[2020-05-30] MEDS: HydrOXYzine PAMOATE 25 MG CAPSULE PO SCH ×3 (08:08→16:09)
[2020-05-30] MEDS: ESCITALOPRAM OXALATE 10 MG TABLET PO SCH (08:12)
[2020-05-30 16:28] VITALS: BP 128/63
[2020-05-30] MEDS: OLANZapine 5 MG TABLET PO SCH (20:05)
[2020-05-30] MEDS: ZOLPIDEM TARTRATE 10 MG TABLET PO PRN (21:05)
[2020-05-31] MEDS: MELATONIN 5 MG TABLET PO PRN (00:03)
[2020-05-31 03:39] VITALS: BP 118/73
[2020-05-31] MEDS: LEVOTHYROXINE SODIUM 25 MCG TABLET PO SCH (06:24)
[2020-05-31 08:04] VITALS: BP 102/77
[2020-05-31] MEDS: OMEGA-3/DHA/EPA/FISH OIL 1,000 MG CAPSULE PO SCH (08:13)
[2020-05-31] MEDS: MULTIVITAMINS WITH MINERALS, THERAPEUTIC TABLET PO SCH (08:13)
[2020-05-31] MEDS: ESCITALOPRAM OXALATE 10 MG TABLET PO SCH ×2 (08:13→09:00)
[2020-05-31] MEDS: GABAPENTIN 400 MG CAPSULE PO SCH ×3 (08:13→16:09)
[2020-05-31] MEDS: HydrOXYzine PAMOATE 25 MG CAPSULE PO SCH ×3 (08:13→16:09)
[2020-05-31] MEDS: ESTRADIOL 1 MG TABLET PO SCH (08:13)
[2020-05-31 16:09] VITALS: BP 130/83
[2020-05-31] MEDS: OLANZapine 5 MG TABLET PO SCH (19:56)
[2020-05-31] MEDS: IBUPROFEN 600 MG TABLET PO PRN (19:57)
[2020-05-31] MEDS: ZOLPIDEM TARTRATE 10 MG TABLET PO PRN (20:34)
[2020-06-01] MEDS: MELATONIN 5 MG TABLET PO PRN (02:32)
[2020-06-01 02:34] VITALS: BP 110/87
[2020-06-01] MEDS: LEVOTHYROXINE SODIUM 25 MCG TABLET PO SCH (06:32)
[2020-06-01] MEDS: ESTRADIOL 1 MG TABLET PO SCH (08:01)
[2020-06-01] MEDS: GABAPENTIN 400 MG CAPSULE PO SCH ×2 (08:02→12:37)
[2020-06-01] MEDS: ESCITALOPRAM OXALATE 10 MG TABLET PO SCH (08:02)
[2020-06-01] MEDS: MULTIVITAMINS WITH MINERALS, THERAPEUTIC TABLET PO SCH (08:02)
[2020-06-01] MEDS: OMEGA-3/DHA/EPA/FISH OIL 1,000 MG CAPSULE PO SCH (08:02)
[2020-06-01] MEDS: HydrOXYzine PAMOATE 25 MG CAPSULE PO SCH ×2 (08:02→12:37)
[2020-06-01 09:30] VITALS: BP 103/67
[2020-06-01] MEDS ORDERED: GABA-1201 PO (13:07)
[2020-06-01] MEDS ORDERED: OLAN10TA3 PO (13:07)
[2020-06-01] MEDS ORDERED: ESTR-95 PO (13:07)
[2020-06-01] MEDS ORDERED: HYDR-4031 PO (13:07)
== END 2020-06-01 14:35 | disposition home or self-care (01) | DRG 750 ==
LOC: B3A 05-03 04:01 → B2S 05-06 17:17
PROVIDERS: ADMIT Psychiatry & Neurology Psychiatry; ATTEND Psychiatry & Neurology Psychiatry
DX: F25.9 Schizoaffective disorder, unspecified (principal); F32.9 Major depressive disorder, single episode, unspecified; G47.00 Insomnia, unspecified; K59.00 Constipation, unspecified; F19.10 Other psychoactive substance abuse, uncomplicated; F41.9 Anxiety disorder, unspecified; R45.851 Suicidal ideations; Z79.899 Other long term (current) drug therapy; Z28.21 Immunization not carried out because of patient refusal
CPT/HCPCS: 83036; 83735; 84100; 84443

== ENCOUNTER 2022-02-06 19:18 | Emergency (ER) | payer MEDICAID, OTHER ==
[~2022-02-06] VITALS: Ht 160 cm; Wt 75.9 kg
[~2022-02-06 19:18] MED LIST: ESCI-8 PO; ESTR-95 PO; GABA-1201 PO; HYDR-4808 PO; LEVO25TA9 PO; MULT-1203 PO; OLAN10TA74 PO
[2022-02-06] MEDS ORDERED: GABA-1181 PO (20:42)
[2022-02-06 20:43] VITALS: BP 110/60
== END 2022-02-06 21:01 | disposition home or self-care (01) ==
LOC: EMS 19:27
DX: R20.8 Other disturbances of skin sensation (principal); E03.9 Hypothyroidism, unspecified; Z88.8 Allergy status to other drugs, medicaments and biological substances; Z88.2 Allergy status to sulfonamides; Z79.899 Other long term (current) drug therapy
CPT/HCPCS: 99283; Z7502